=== PATIENT | female | born 1950 | race Caucasian/White ===

== ENCOUNTER → 2020-11-15 07:54 | Outpatient (REF) | payer MEDICARE, SELFPAY | LOC: ANHLAB 07:54 | PROVIDERS: PCP Physician Assistant Medical; Visit Provider Nurse Practitioner | DX: L98.9 Disorder of the skin and subcutaneous tissue, unspecified (principal) | CPT/HCPCS: 88305; 88331 ==

== ENCOUNTER → 2021-06-07 09:15 | Outpatient (REF) | payer MEDICARE, SELFPAY | LOC: ANHLAB 09:15 | PROVIDERS: PCP Physician Assistant Medical; Visit Provider Nurse Practitioner | DX: C44.92 Squamous cell carcinoma of skin, unspecified (principal) | CPT/HCPCS: 88305 ==